=== PATIENT | male | born 1995 | race Caucasian/White ===

== ENCOUNTER 2022-11-12 00:18 | Emergency (ER) | payer SELFPAY ==
[~2022-11-12] VITALS: Ht 170.2 cm; Wt 83.2 kg
[2022-11-12 00:19] VITALS: BP 153/87
== END 2022-11-12 01:42 | disposition left against medical advice (07) ==
LOC: M ED 00:18
DX: Z53.21 Procedure and treatment not carried out due to patient leaving prior to being seen by health care provider (principal)

== ENCOUNTER → 2025-06-17 | Outpatient (CLI) | payer OTHER ==
[~2025-06-17] MED LIST: METHACHOLINE KIT (6 VIAL.NEB PREMIX) INH ONE
== END ==
LOC: M CARPUL 08:56
PROVIDERS: ATTEND Physician Assistant
DX: R06.00 Dyspnea, unspecified (principal)
CPT/HCPCS: 94070; 95070; J7674